=== PATIENT | male | born 1990 | race Caucasian/White ===

== ENCOUNTER 2017-01-12 14:46 | Emergency (ER) | payer SELFPAY ==
[~2017-01-12] VITALS: Ht 175.3 cm; Wt 61.0 kg
[2017-01-12 14:52] VITALS: BP 118/77; PULSE 94; RESP 16; TEMP 97.7; O2SAT 100
[2017-01-12] MEDS ORDERED: BACT800T5 PO (15:49)
--- NOTE | 2017-01-12 15:50 | PD ---
HPI Chief Complaint: Skin Problem Time Seen by Provider: 15:20 Travel History International Travel<30 days: No Contact w/Intl Traveler<30days: No Traveled to known affect area: No History of Present Illness HPI 27-year-old male presents emergency department for evaluation of an abscess on his right arm. Patient reports to IV drug use occasionally in that arm. He reports that the abscess on the right arm developed approximately 3 days ago. He reports that a family member attempted to juan jose the abscess with a pocket knife. He reports at that point they had small amount of pus expressed from the area. The area has gotten slightly larger since then. He denies fevers chills or sweating. No significant past medical history. He has pain localized to the abscess only when the abscess is palpated. [facility] Past Medical History Medical History: Denies Significant Hx Bipolar Disorder: Yes (STATES IS SUPPOSED TO BE ON MEDS BUT DOES NOT TAKE) Tetanus Vaccination: Unknown Influenza Vaccination: No Past Surgical History Appendectomy: Yes Social History Alcohol Use: No Tobacco Use: Yes (1ppd) Substance Use: Yes (IV DRUGS, LAST USED ON 01 08 17) Allergies-Medications (Allergen,Severity, Reaction): Coded Allergies: No Known Allergies (Unverified , 01/12/17) Review of Systems Except as stated in HPI: all other systems reviewed are Neg Physical Exam Narrative GENERAL: Alert, disheveled young male. SKIN: 2 x 2 centimeter abscess in the right forearm. No surrounding cellulitis. No lymphangitis. The abscess is fluctuant HEAD: Normocephalic. EYES: No scleral icterus. No injection or drainage. NECK: Supple, trachea midline. No JVD or lymphadenopathy. CARDIOVASCULAR: Regular rate and rhythm without murmurs, gallops, or rubs. RESPIRATORY: Breath sounds equal bilaterally. No accessory muscle use. GASTROINTESTINAL: Abdomen soft, non-tender, nondistended. MUSCULOSKELETAL: No cyanosis, or edema. BACK: Nontender without obvious deformity. No CVA tenderness. Data Data Last Documented VS Vital Signs Date Time Temp Pulse Resp B/P Pulse Ox O2 Delivery O2 Flow Rate FiO2 01/12/17 14:52 97.7 94 16 118/77 100 MDM Medical Decision Making Medical Screen Exam Complete: Yes Emergency Medical Condition: Yes Medical Record Reviewed: Yes Differential Diagnosis Abscess, cellulitis, Narrative Course 27-year-old male presents emergency department for evaluation abscess on his right forearm. Patient reports occasional IV drug use in that arm. He reports abscess developed 3 days ago. He denies fevers chills or sweating. He has no other medical complaints. The patient is nontoxic appearing abscess fluctuant with no surrounding cellulitis or lymphangitis. I&D performed. Wound cultures pending. Patient be started on Bactrim and instructed to follow-up in 2 days. Procedures Procedure Narrative Incision and drainage of right forearm abscess. Area prepped with Betadine. 1 cc 1% lidocaine infiltrated into the area. Incised with #11 blade. A large amount of purulent drainage expressed. Area was not packed due to patient's intolerance. Wound cultures obtained. Patient tolerated procedure well. Minimal blood loss. Diagnosis Primary Impression: Abscess Referrals: Primary Care Physician Patient Instructions: Abscess Incision and Drainage (ED), General Instructions Scripts Sulfamethoxazole-Trimethoprim (Bactrim DS)800-160 Mg Tab1 Tab PO BID #20 TAB Prov:Rosa Anderson 01/12/17 Disposition: 01 DISCHARGE HOME Condition: Stable Rosa Anderson Jan 12, 2017 15:50
[2017-01-12] MEDS ORDERED: SULFAMETHOXAZOLE-TRIMETHOPRIM DS 800-160 MG TAB PO ONE (16:00)
[2017-01-12] MEDS ORDERED: IBUPROFEN 800 MG TAB PO ONE (16:00)
== END 2017-01-12 16:20 | disposition home or self-care (01) ==
LOC: PHEFT 14:46
DX: L02.413 Cutaneous abscess of right upper limb (principal); B95.62 Methicillin resistant Staphylococcus aureus infection as the cause of diseases classified elsewhere; F17.200 Nicotine dependence, unspecified, uncomplicated
CPT/HCPCS: 10060; 86403; 87070; 87186; 87205